=== PATIENT | female | born 1975 | race Two or more races ===

== ENCOUNTER → 2024-05-28 | Outpatient (CLI) | payer MEDICAID, SELFPAY ==
--- NOTE | 2024-05-28 | XR_ITS ---
Examination: Abdomen AP single view Technique: AP portable supine abdomen, single view Exam date and time: May 28, 2024 1323 hours INDICATIONS: History left approximately tube placement January 2024 FINDINGS: Left nephrostomy ureteral stent satisfactory position Multiple subcentimeter left renal calculi IMPRESSION: Left nephrostomy ureteral stent satisfactory position
== END | disposition home or self-care (01) ==
PROVIDERS: Referring Provider Surgery; Visit Provider Surgery
DX: N20.0 Calculus of kidney (principal)
CPT/HCPCS: 74018

== ENCOUNTER 2024-06-21 17:57 | Inpatient (IN) | payer MEDICAID, SELFPAY ==
[2024-06-20 11:05] VITALS: BMI 24.2
[2024-06-20 13:04] LABS: Collection Type, Urine Clean Catch
--- NOTE | 2024-06-20 13:23 | ESHP_ITS ---
RE: DARIA DAVIDSON : 1975 DATE OF ADMISSION: 06/21/2024 HISTORY OF PRESENT ILLNESS: The patient is a female who has a nephrostomy tube in place. She has a nephrostomy tube since 01/2024 from [facility]. She had stones in her left kidney and left ureter causing obstruction. That is why the nephrostomy tube was placed. She has a history of urinary calculi in the past. She is now scheduled to have extracorporeal shock wave lithotripsy for the left ureteral stones. Planned procedure, risks and complications have been discussed with the patient. The patient has understood them and agreed to proceed PAST SURGICAL HISTORY: The patient had tubal ligation, laparoscopy for endometriosis. PAST MEDICAL HISTORY: She has mild stress urinary incontinence. She does not have any history of diabetes mellitus. She does have a history of hypertension. SOCIAL HISTORY: She has three children. ALLERGIES: SHE IS ALLERGIC TO PENICILLIN. MEDICATIONS: She takes Zestril for her blood pressure. PHYSICAL EXAMINATION: HEENT: Normal. NECK: Supple. LUNGS: Clear. HEART: Sounds are normal. ABDOMEN: Reveals a left-sided percutaneous nephrostomy. Otherwise, abdomen is soft. IMPRESSION: 1. Left ureteral obstruction. 2. Left ureteral calculi. PLAN: ESWL for the left ureteral calculi. Planned procedure risks and complications have been discussed with the patient. The patient has understood them and agreed to proceed. DT: 12:39:54 TT: 13:22:00 Ref: [id number] - TID: [id number]
[2024-06-20 13:25] LABS: Bacteria,Urine 1+; Bilirubin,Urine Negative (Negative); Blood,Urine 2+ (Negative); Clarity,Urine Hazy (Clear/Hazy); Color,Urine Yellow (Lt Yel-Yel); Glucose, Urine Negative (Negative); Ketones,Urine Negative (Negative); Leukocyte Esterase,Urine Positive (Negative); Nitrite,Urine Negative (Negative); Protein,Urine 2+ (Neg - Trace); RBC,Urine 204 /hpf (0-3); Specific Gravity,Urine 1.014 (1.001-1.035); Squamous Epithelial Cell,Urine 3 /hpf (0-5); Urobilinogen,Urine Negative mg/dL (0.0-1.0); WBC,Urine 248 /hpf (0-5)
[2024-06-20 13:27] LABS: Basophils % (Auto) 0 % (0-2.5); Eosinophils # (Auto) 0.2 Thou/mm3 (0.0-0.5); Eosinophils % (Auto) 3 % (0-10); Hematocrit 41.7 % (36.0-46.0); Hemoglobin 13.7 g/dL (12.0-16.0); Immature Granulocytes % (Auto) 0 % (0-0); Immature Granulocytes Auto 0.03 Thou/mm3 (0.00-0.00); Lymphocytes # (Auto) 1.6 Thou/mm3 (1.0-4.8); Lymphocytes % (Auto) 20 % (10-50); Mean Corpuscular HGB Conc 32.9 g/dl (31.0-37.0); Mean Corpuscular Hemoglobin 28.8 pg (25.0-35.0); Mean Corpuscular Volume 88 fL (80-100); Monocytes # (Auto) 0.4 Thou/mm3 (0.0-0.8); Monocytes % (Auto) 6 % (0-12); Neutrophils # (Auto) 5.5 Thou/mm3 (1.8-7.7); Neutrophils % (Auto) 71 % (37-80); Nucleated Red Blood Cell % 0 /100 WBC (0); Platelet Count 354 Thou/mm3 (140-440); Red Blood Count 4.76 Miln/mm3 (4.00-5.20); White Blood Count 7.7 Thou/mm3 (3.6-11.0)
[2024-06-20 13:29] LABS: Anion Gap 8 (7-16); BUN/Creatinine Ratio 15 Ratio (12-20); Blood Urea Nitrogen 12 mg/dL (9-23); Calcium 9.9 mg/dL (8.3-10.6); Carbon Dioxide 26.8 mMol/L (20.0-31.0); Chloride 105 mMol/L (98-107); Creatinine (Component) 0.8 mg/dL (0.6-1.3); Estimated Creatinine Clearance 69.7 mL/min (>60); Glucose 109 mg/dL (74-106); Osmolality,Calculated 280 (275-295); Sodium 140 mMol/L (136-145); eGFR > 60 See Note
--- NOTE | 2024-06-20 14:21 | SUR.PREOP ---
K+ level 3.0, Dr Segovia notified, per Dr Segovia no need to repeat levels.
[2024-06-21] VITALS (24 sets, daily range): BP systolic 126–177; BP diastolic 70–110; PULSE 80–109; RESP 12–23; TEMP 36.4–37.2; O2SAT 95–100; BMI 23.6; BMI 25.9
--- NOTE | 2024-06-21 08:00 | XR_ITS ---
Examination: Abdomen AP single view Technique: AP portable supine abdomen, single view Exam date and time: June 21, 2024 10:40 AM INDICATIONS: History left kidney stones FINDINGS: Left nephrostomy ureteral catheter noted in satisfactory position Minute multiple left renal calculi No ureteral calculi noted IMPRESSION: Left nephrostomy ureteral catheter satisfactory position
--- NOTE | 2024-06-21 09:25 | EKG_ITS ---
[facility] Test Date: 2024-06-21 Pat Name: DARIA DAVIDSON Department: Room: - Gender: Female Bander Hand: [facility] : 1975 Requested By: Song Amaya Order Number: [id number] Reading MD: Song Amaya Measurements Intervals [place] Rate: 80 P: 43 ND: 147 QRS: 55 QRSD: 84 T: 55 QT: 372 QTc: 429 Interpretive Statements SINUS RHYTHM No previous ECG available for comparison /store/S0/[id number]/ecg/[id number].pdf
--- NOTE | 2024-06-21 11:54 | SUR.PHASEI ---
1130: Pt received in [place] via [facility]. Report from Jaguar BARNEY and Nick FAJARDO. Pt groggy. Easily aroused. Resp even, unlabored. BP elevated. Anesthesia aware. No recommendations at this time. Dressing to left flank dry, clean, intact. No complaints of pain.
[2024-06-21] MEDS: HYDROmorphone INJ 2 MG/ML VIAL 0.4 MG IVP (12:18)
--- NOTE | 2024-06-21 12:51 | SUR.PHASEI ---
1200: Pt resting with no complaints voiced. Resp even, unlabored. VS stable. Dressing to left flank remains dry, clean, intact.
--- NOTE | 2024-06-21 13:05 | SUR.PHASEII ---
1218: Pt awake with c/o to left flank. Rates pain level 8/10. Received new order for pain control. Resp even, unlabored. VS stable. Pain medication given at this chaya. 1230: Purwick external catheter placed. 1245: Purwick suctioning adequately with 200cc clear yellow urine in cannister. 1248: Pt states pain level down and very tolerable. Resting with no further complaints. 1308: Report to Valentina BARNEY.
[2024-06-21] MEDS: ONDANSETRON INJ 2 MG/ML INJ 2 ML 4 MG IV ×2 (13:13→21:01)
--- NOTE | 2024-06-21 13:45 | SUR.PHASEII ---
Report to Adamaris RN
--- NOTE | 2024-06-21 14:19 | ESOP_ITS ---
RE: DARIA DAVIDSON : 1975 DATE OF OPERATION: 06/21/2024 PREOPERATIVE DIAGNOSES: Left ureteral obstruction, status post left percutaneous nephrostomy with left ureteral stent, left lower pole renal calculi, and history of left ureteral obstruction. POSTOPERATIVE DIAGNOSES: Left ureteral obstruction, status post left percutaneous nephrostomy with left ureteral stent, left lower pole renal calculi, and history of left ureteral obstruction. PROCEDURE PERFORMED: ESWL for the left lower pole renal stones, percutaneous left nephrostogram, and removal of the left percutaneous nephrostomy tube with the left ureteral stent. ANESTHESIA: General by Sesar Romero CRNA INDICATION: The patient is a 49-year-old female. She had a left ureteral obstruction. She had multiple left renal calculi. She still has a few renal calculi in the lower pole of the left kidney. She has left ureteral stent with left percutaneous nephrostomy. She was now scheduled to have ESWL for the left lower pole renal calculi. Planned procedure, risks, and complications have been discussed with the patient. The patient was also told that we will do a left nephrostogram at the end of the procedure and remove the percutaneous nephrostomy attached with the left ureteral stent at the end of the procedure if there is no obstruction anymore. Planned procedure, risks, and complications have been discussed with the patient. The patient understood them and agreed to proceed. DESCRIPTION OF PROCEDURE: After the patient was brought to the operating table under adequate general anesthesia given by Mr. Nick CRNA, she was placed on Dornier Delta III lithotripsy machine. She had 2500 shots given at power level 7 to 8. She had ESWL done for the left lower pole renal calculi. At the end of the procedure, through the left nephrostomy tube, I did a nephrostogram. I injected radiopaque dye, which went through the nephrostomy tube into the left ureter into the bladder without any obstruction. There was mild left-sided hydronephrosis. I removed the left percutaneous nephrostomy tube and the left ureteral stent, which was attached to the nephrostomy tube came out. The whole stent came out. There was some encrustation at the end of the ureteral stent. I again did fluoroscopy and there was no obstruction to the left kidney or ureter. The dye was going down into the bladder without any obstruction. Dressing was applied to the nephrostomy site and the procedure was then terminated. The patient tolerated the entire procedure well and left the room in good condition. DT: 11:49:53 TT: 14:18:00 Ref: [id number] - TID: [id number]
[2024-06-21] MEDS: PROMETHAZINE INJ 25 MG in SODIUM CHLORIDE 0.9% 50 ML IV (14:36)
--- NOTE | 2024-06-21 14:40 | SUR.PHASEII ---
1345: Pt continues to have complaints of nausea. Pt retching.
--- NOTE | 2024-06-21 14:42 | SUR.PHASEII ---
1410: Received new order from anesthsia for Promethazine. Awaiting pharmacy to deliver medication. 1436: Promethazine received from [facility] and infusion started.
--- NOTE | 2024-06-21 14:55 | SUR.PHASEII ---
1455: Nausea subsided. Medication effective. Pt sleeping. BP down. All VS stable.
--- NOTE | 2024-06-21 15:21 | SUR.PHASEII ---
1519: Pt sleeping. VS stable. Suction container emptied of 800cc clear very pale pink urine.
--- NOTE | 2024-06-21 17:34 | SUR.PHASEII ---
1615: Pt has been resting with no complaints voiced. VS stable. 1715: Pt continues to rest with no complaints voiced. VS stable. Dressing to left flank remains dry, clean, intact.
--- NOTE | 2024-06-21 17:48 | SUR.PHASEII ---
1740: Report to 3rd floor. Pt transferred to room 363 in stable condition.
--- NOTE | 2024-06-21 20:59 | PC.NURSE ---
pt having N/V, Dr. Amaya was made aware. Zofran was ordered following MD orders.
[2024-06-21] MEDS: HYDROcodone/APAP 5/325 TABLET 1 TAB PO (21:02)
[2024-06-21] MEDS: CIPROFLOXACIN HCL 250 MG TABLET 500 MG PO (21:02)
[2024-06-22] VITALS (7 sets, daily range): BP systolic 100–153; BP diastolic 71–96; PULSE 98–117; RESP 16–20; TEMP 36.1–37.3; O2SAT 94–97
[2024-06-22] MEDS: HYDROcodone/APAP 5/325 TABLET 1 TAB PO (02:57)
--- NOTE | 2024-06-22 06:25 | PC.NURSE ---
CUT OFF SAWYER SHINGLE MILL called to pt's room. Pt in pain and complaining of SOB.
--- NOTE | 2024-06-22 06:29 | XR_ITS ---
Examination: Abdomen AP single view Technique: AP portable supine abdomen, single view Exam date and time: June 22, 2024 at 0845 hours INDICATIONS: Abdominal pain today. FINDINGS: Foreign body projects over the right abdomen, clinical correlation is advised Nonobstructive bowel gas pattern No free air Osseous structures are intact IMPRESSION: Foreign body projects over the right abdomen, clinical correlation advised
--- NOTE | 2024-06-22 06:29 | XR_ITS ---
Examination: AP chest single view Technique one AP portable upright chest single view Exam date 9: June 22, 2024 at 0653 hours INDICATIONS: Chest pain shortness of breath today. FINDINGS: Mild prominence left ventricle Subsegmental atelectasis left base No pneumonia or pulmonary edema IMPRESSION: Minor subsegmental atelectasis left base
[2024-06-22] MEDS: MORPHINE SULF INJ 10 MG/ML VIAL IVP ×3 (06:35→23:35)
--- NOTE | 2024-06-22 06:41 | XR_ITS ---
Examination: CT abdomen and pelvis without contrast. Coronal 3-D reconstructions. Sagittal 2-D reconstructions. Date and time of exam:June 22, 2024, 1134 hours INDICATIONS: History nephrostomy tube CTDI: vol (mGy): 8.49 DLP: (mGycm): 419 Technique: Axial images of the abdomen have been obtained, 3 mm slice thickness Intravenous contrast material has not been administered. Low dose protocols were performed. One or more of the following dose reduction techniques were used; automated exposure control, adjustment of the mA and/or KV according to patient size, use of iterative reconstruction technique. Findings: Atelectasis versus pneumonia left base clinical correlation advised 6 mm right lobe liver cyst No biliary tract dilatation Suspicious for gallbladder sludge No pancreatic mass Bilateral multiple renal calculi, the largest in the left kidney measuring up to 6 mm Mild to moderate left hydronephrosis secondary to 5 mm proximal left ureteral calculus No bowel obstruction Aorta normal size No pericecal inflammatory change Anteverted uterus Mild osteopenia IMPRESSION: Multiple bilateral renal calculi [id number] left hydronephrosis secondary to a 5 mm proximal left ureteral calculus
[2024-06-22 06:49] LABS: Lactate (Lactic Acid) 2.3 mMol/L (0.4-2.0)
--- NOTE | 2024-06-22 06:51 | PC.NURSE ---
UI DEVELOPER WITH ANGULAR JS called to pt's room. Pt complaining of pain and trouble breathing, new orders for pt, see BETH, Orders.
--- NOTE | 2024-06-22 06:53 | EVENTNT_ITS ---
Documentation for date of: 06/22/24 Event Note Event Note: Rapid response was called for the patient around 6:25 AM. Patient is a 49-year-old female under the care of urology who had a nephrostomy tube and ureteral stent removed yesterday. Rapid response was called due to acute debili tating pain ranked as 10 out of 10 and described as sharp and stabbing that worsened with inspiration, cough, and associated with some nausea like symptoms. Patient had received [place] at 3 AM and was doing fairly well but around 530 began to experience pain on her left side in the region of the nephrostomy site that was radiating to the anterior beneath the ribs. She was noted to be tachycardic and slightly hypertensive which rapidly improved to normotensive. Patient states that the pain is worse than when she had the ureteral stone. Initially plan to order KUB but later changed to CT of the abdomen along with a chest x-ray. No guarding, rebound tenderness, or rigidity noted on examination of bilateral equal breath sounds. Patient was reluctant to allow us to assess the left flank because of the tenderness. Gave the patient 1 mg of morphine which reduced her pain from 10 out of 10 to 7 out of 10 and she was able to converse more comfortably. She is did state that she was having a pokey sensation around her body after the morphine but has received morphine in the past and is not opioid na?ve. Recommend to reach out to urology following CT abdomen. Also give the patient Protonix 40 IV and Zofran for nausea. CBC, CMP, troponin ordered. Consider EKG and was appearing to be noncardiac and more in the left flank. Plan of care discussed with supervising attending Dr. Marin Izaguirre M.D. PGY-3
--- NOTE | 2024-06-22 07:00 | PC.NURSE ---
CHARM FILTER OPERATOR HELPER called for paitient due to uncontrolled pain on previous site of nephrostomy tube. cxr, kub, labs, meds, morphine 1mg IV push ordered.
[2024-06-22 07:08] LABS: Basophils # (Auto) 0.1 Thou/mm3 (0.0-0.2); Basophils % (Auto) 0 % (0-2.5); Eosinophils # (Auto) 6.9 Thou/mm3 (0.0-0.5); Eosinophils % (Auto) 20 % (0-10); Hematocrit 39.6 % (36.0-46.0); Hemoglobin 13.5 g/dL (12.0-16.0); Immature Granulocytes % (Auto) 3 % (0-0); Immature Granulocytes Auto 1.18 Thou/mm3 (0.00-0.00); Lymphocytes # (Auto) 0.4 Thou/mm3 (1.0-4.8); Lymphocytes % (Auto) 1 % (10-50); Mean Corpuscular HGB Conc 34.1 g/dl (31.0-37.0); Mean Corpuscular Volume 85 fL (80-100); Monocytes # (Auto) 1.1 Thou/mm3 (0.0-0.8); Monocytes % (Auto) 3 % (0-12); Neutrophils # (Auto) 24.8 Thou/mm3 (1.8-7.7); Neutrophils % (Auto) 72 % (37-80); Nucleated Red Blood Cell % 0 /100 WBC (0); Platelet Count 240 Thou/mm3 (140-440); Red Blood Count 4.66 Miln/mm3 (4.00-5.20); White Blood Count 34.5 Thou/mm3 (3.6-11.0)
--- NOTE | 2024-06-22 07:10 | ESCONSULT_ITS ---
HPI Data of Consult Consult date: 06/22/24 Requesting Physician: Song Amaya MD Attending Provider: Snog Amaya MD Primary Care Provider: RAPHAEL Bernabe Consult Narrative Reason for consult: Left upper quadrant pain radiating to the back History of present illness: This patient is a 49-year-old female with past medical history of endometriosis, stress urinary incontinence, hypertension was admitted for extracorporeal shockwave lithotripsy for the left ureteral stones. She had nephrostomy tube placed since January 2024 from [facility] due to stones in her left kidney and left ureter causing obstruction. Procedure was performed on 06/21/[address] Amaya. Extracorporeal shockwave lithotripsy was performed for left lower pole renal calculi and left nephrostogram was performed at the end of the procedure and percutaneous nephrostomy tube were removed. Patient tolerated the procedure well. PMH: As above PSH: Tubal ligation and laparoscopy for endometriosis SH: She has 3 children. Allergies: Allergic to penicillin Medications: Zestril for blood pressure Reason for consultation: Rapid response was called for the patient around 6:25 AM. Patient is under care of urology who had a nephrostomy tube and ureteral stent removed yesterday. Rapid response was called due to acute debilitating pain ranked as 10 out of 10 and described as sharp and stabbing that worsened with inspiration, cough, and associated with some nausea like symptoms. Patient had received [place] at 3 AM and was doing fairly well but around 530 began to experience pain on her left side in the region of the nephrostomy site that was radiating to the anterior beneath the ribs. She was noted to be tachycardic and slightly hypertensive which rapidly improved to normotensive. Patient states that the pain is worse than when she had the ureteral stone. Initially plan to order KUB but later changed to CT of the abdomen along with a chest x-ray. No guarding, rebound tenderness, or rigidity noted on examination of bilateral equal breath sounds. Patient was reluctant to allow us to assess the left flank because of the tenderness. Gave the patient 1 mg of morphine which reduced her pain from 10 out of 10 to 7 out of 10 and she was able to converse more comfortably. She is did state that she was having a pokey sensation around her body after the morphine but has received morphine in the past and is not opioid na?ve. Recommend to reach out to urology following CT abdomen. Also give the patient Protonix 40 IV and Zofran for nausea. CBC, CMP, troponin ordered. Consider EKG and was appearing to be noncardiac and more in the left flank. cc:: cc: Song Amaya MD Review of Systems Review of Systems Systems Reviewed: All systems reviewed, normal except as documented Past Medical History Past Medical History CARDIAC: Positive Hypertension GENITOURINARY: Positive Kidney Stones REPRODUCTIVE: Positive Endometriosis Exam Vital Signs Temp Pulse Resp BP Pulse Ox O2 Del Method O2 Flow Rate 98.7 F 104 H 20 153/81 H 97 Room Air 5 06/22/24 06:25 06/22/24 06:25 06/22/24 06:25 06/22/24 06:25 06/22/24 06:06/22/24 04:00 06/21/24 11:50 Narrative Exam GENERAL APPEARANCE: AxOx4, generally well-appearing female in pain.sat well on RA HEENT: NC, AT. Dry mucus membrane. EOMI, clear conjunctiva, oropharynx clear. NECK: Supple without lymphadenopathy. No stiffness or restricted ROM. HEART: sinus tacy with regular rhythm, normal S1/S2, no m/r/g LUNGS: CTAB, moving air well. No crackles or wheezes are heard. ABDOMEN: Soft, Tenderness elicited on left upper and lower quadrant, nondistended with good bowel sounds heard. BACK: left flank pain EXTREMITIES: Without cyanosis, clubbing or edema. NEUROLOGICAL: Grossly nonfocal. Alert and oriented, moving all 4 extremities. CN not formally tested but appear grossly intact. Observed to ambulate with normal gait. Skin: Warm and dry without any rash. Psych: Anxious with pain Results Labs 06/22/24 06:39 06/22/24 06:39 Quality Measures Quality Measures VTE prophylaxis Medications Home Medications and Allergies Home Medications ?Medication ?Instructions ?Recorded ?Confirmed ?Type L.acidophilus-L.bulgar-B.bifid-S.thermoph 1 tab PO JAVY LY 06/20/24 06/20/24 History 1 billion cell-250 mg tablet (Amy-Bid) hydrocodone 5 mg-acetaminophen 325 1 tab PO Q6H PRN pa in 06/20/24 06/20/24 History mg tablet ondansetron 4 mg disintegrating 4 mg PO Q8H 06/20/24 0 06/20/24 History tablet tamsulosin 0.4 mg capsule 0.4 mg PO DAILY 06/20/24 History Allergies Allergy/AdvReac Type Severity Reaction Status Date / Time Penicillins Allergy Anaphylaxis Verified 06/21/24 11:41 Visit Medications Hydrocodone Bitart/Acetaminophen (Hydrocodone/Apap 5/325 Tablet) 1 tab PO Q6HR PRN PRN Reason: PAIN Stop: 06/26/24 13:19 Last Admin: 06/22/24 02:57 Dose: 1 tab Ciprofloxacin (Ciprofloxacin Hcl 250 Mg Tablet) 500 mg PO BID EVELINE Stop: 06/28/24 20:59 Last Admin: 06/21/24 21:02 Dose: 500 mg Ondansetron HCl (Ondansetron Inj 2 Mg/Ml Inj 2 Ml) 4 mg IV Q6HR PRN; Protocol PRN Reason: NAUSEA OR VOMITING Stop: 07/21/24 20:52 Last Admin: 06/21/24 21:01 Dose: 4 mg Discontinued Medications Hydromorphone HCl (Hydromorphone Inj 2 Mg/Ml Vial) 0.4 mg IVP Q15M PRN PRN Reason: PAIN Stop: 06/21/24 14:04 Last Admin: 06/21/24 12:18 Dose: 0.4 mg Lactated Ringer's (Lactated Ringers) 1,000 mls @ 20 mls/hr IV .Q24H ONE Stop: 06/22/24 05:59 Promethazine HCl 25 mg/ Sodium (Chloride) 51 mls @ 2.5 mls/min IV Q6HR PRN PRN Reason: NAUSEA OR VOMITING Stop: 06/21/24 16:10 Last Admin: 06/21/24 14:36 Dose: 2.5 mls/min Morphine Sulfate (Morphine Sulf Inj 10 Mg/Ml Vial) 1 mg IVP X1 ONE Stop: 06/22/24 06:31 Last Admin: 06/22/24 06:35 Dose: 1 mg Ondansetron HCl (Ondansetron Inj 2 Mg/Ml Inj 2 Ml) 4 mg IV X1 ONE; Protocol Stop: 06/21/24 12:12 Last Admin: 06/21/24 13:13 Dose: 4 mg Ondansetron HCl (Ondansetron Inj 2 Mg/Ml Inj 2 Ml) 4 mg IV X1 ONE; Protocol Stop: 06/22/24 06:37 Pantoprazole Sodium (Pantoprazole Inj 40 Mg Vial) 40 mg IV X1 ONE Stop: 06/22/24 06:37 Assessment & Plan Plan This patient is a 49-year-old female with past medical history of endometriosis, stress urinary incontinence, hypertension was admitted for extracorporeal shockwave lithotripsy for the left ureteral stones.#Extracorporeal shockwave lithotripsy was performed for left lower pole renal calculi and left nephrostogram was performed at the end of the procedure and percutaneous nephrostomy tube were removed on 06/21/[address] Amaya. #Left flank and upper quadrant Pain #Post ECSW lithotripsy and Removal of Left nephrotosmy tube due to ureteral stones #UTI -Rapid response was called for the patient around 6:25 AM. Patient is under care of urology who had a nephrostomy tube and ureteral stent removed yesterday. Rapid response was called due to acute debilitating pain ranked as 10 out of 10 and described as sharp and stabbing that worsened with inspiration, cough, and associated with some nausea like symptoms.pain on her left side in the region of the nephrostomy site that was radiating to the anterior beneath the ribs. She was noted to be tachycardic and slightly hypertensive which rapidly improved to normotensive. She states that the pain is worse than when she had the ureteral stone.pain on her left side in the region of the nephrostomy site that was radiating to the anterior beneath the ribs. She was noted to be tachycardic and slightly hypertensive which rapidly improved to normotensive. Patient states that the pain is worse than when she had the ureteral stone. -She was noted to be tachycardic and slightly hypertensive which rapidly improved to normotensive. -Liver enzymes unremarkable. Troponin I was negative. -Ucx grew Klebsiella resistant to ciprofloxacin Plan: -Follow up with KUB, CT of the abdomen/pelvis wo cont along with a chest x-ray. - [place] and Morphine PRN for pain -Zofran and Protonix given x 1 -Zofran for nausea -Follow up with CBC,CMP,Lactic acid,Trop I -Consider EKG and was appearing to be noncardiac and more in the left flank. - Switch to Bactrim 1 tablet twice daily due to allergic to penicillins and resistant to ciprofloxacin seen on culture sensitivity growing Klebsiella #Leukocytosis likely reactive due to proceedure vs ?infection -Morning labs reveal leukocytosis with white count 34.5. Hemoglobin stable at 13.5. Platelet count unremarkable. - Urine culture grew Klebsiella resistant to ciprofloxacin Plan: -Switch to Bactrim 1 tablet twice daily given allergic to penicillin and resistant to ciprofloxacin -Cont IV fluids and as of LR given #Hypokalemia -Potassium was 3.5. Plan: -P.o. KCl 40M EQ x 1 - Follow-up with magnesium levels and replete as necessary #Mild ALFRED likely prerenal due to dehydration versus postrenal due to renal stone -BUN 15 and creatinine 1.2 with GFR 55. Blood glucose 121. Plan: - Continue IV fluids - Follow-up with CT abdomen pelvis without contrast to rule out further stones in the ureter - Renally dose medications #Lactic acidosis likely type A related to hypoperfusion due to developing ?infection -lactic acid elevated 2.3. Plan: -Continue antibiotics and given IV fluids LR 1 L x 1 - Switched antibiotics to Bactrim sensitive to urine culture sensitivity #Hx of Hypertension #Hx of Endometriosis - Outpatient follow-up - Monitor vitals Thank you very much for allowing hospitalist team to be part of patient care. -- Plan of care discussed with attending physician, Dr.Bishwakarma Dr. Albert MD, PGY 2 Attending Provider Attestation/Addendum I attest that I was physically present for the evaluation, physical examination, lab and imaging review of the patient with the residents. I discussed the case with the residents and agree with the findings and plans of care as documented above. Patient is a 49 years old female with past medical history of endometriosis, urinary incontinence, hypertension who was admitted for extracorporeal shockwave lithotripsy for left ureteral stone by urology. Left nephrostomy tube was also removed at the same time. In the morning, a rapid response was called due to severe pain, 10/10 associated with mild nausea. Patient had received [place] but despite that she continued to have pain. At bedside, patient was tachycardic, mildly hypertensive and appeared to be in distress from pain. Ordered IV morphine and CT abdomen/pelvis. Also ordered Protonix and Zofran. We will obtain morning labs including CBC, CMP EKG and troponin. Internal medicine consult was requested by urology. Patient was found to be resistant to ciprofloxacin on culture results, we will switch her antibiotic to Bactrim. Potassium level was 3.5, repleted with 40 mill equivalent. We will also obtain magnesium level. We will continue with IV hydration, concern for mild ALFRED with creatinine of 1.2. Added morphine 1 mg every 4 hours as needed in addition to the [place] for pain control. We will continue to monitor her pain closely and adjust the regimen accordingly. Nikita Funes MD
[2024-06-22] MEDS: ONDANSETRON INJ 2 MG/ML INJ 2 ML 4 MG IV (07:23)
[2024-06-22] MEDS: PANTOPRAZOLE INJ 40 MG VIAL IV (07:24)
[2024-06-22 07:27] LABS: HCG,Qualitative Serum Negative
[2024-06-22 07:32] LABS: Alanine Aminotransferase 15 U/L (10-49); Albumin, Serum 4.3 gm/dL (3.5-5.0); Albumin/Globulin Ratio 1.7 (1.2-2.2); Alkaline Phosphatase 64 U/L (46-116); Anion Gap 11 (7-16); Aspartate Amino Transferase 25 U/L (0-34); BUN/Creatinine Ratio 13 Ratio (12-20); Bilirubin,Total 0.7 mg/dL (0.3-1.2); Blood Urea Nitrogen 15 mg/dL (9-23); Calcium 9.5 mg/dL (8.3-10.6); Calcium (Corrected) 9.5 mg/dL (8.5-10.1); Carbon Dioxide 24.2 mMol/L (20.0-31.0); Chloride 101 mMol/L (98-107); Creatinine (Component) 1.2 mg/dL (0.6-1.3); Estimated Creatinine Clearance 47.9 mL/min (>60); Globulin 2.6 gm/dL (2.3-3.5); Glucose 121 mg/dL (74-106); Osmolality,Calculated 273 (275-295); Potassium 3.5 mMol/L (3.4-5.1); Sodium 136 mMol/L (136-145); Total Protein 6.9 gm/dL (5.7-8.2); Troponin I 0.022 ng/mL (0.0-0.045); eGFR 55 See Note
[2024-06-22] MEDS: TRIMETHOPRIM/SULFA 160/800 DS TABLET 1 TAB PO ×2 (08:55→21:22)
[2024-06-22] MEDS: POTASSIUM CHLORIDE 10% 20 MEQ/15 ML UDC 40 MEQ PO (08:55)
[2024-06-22] MEDS: DEXTROSE 5%-LACTATED RINGERS 1,000 ML 100 ML IV ×2 (08:56→21:33)
[2024-06-22] MEDS: RINGERS LACTATED 1000 ML 1,000 ML 999 ML IV (08:56)
[2024-06-22 09:31] LABS: Magnesium 1.3 mg/dL (1.6-2.6)
[2024-06-22 09:43] LABS: Reflex Lactate? Y
[2024-06-22 10:47] LABS: Lactic Acid, 3 HR 3.5 mMol/L (0.4-2.0)
--- NOTE | 2024-06-22 16:15 | ESPR_ITS ---
<Statement entered by Mark Pope MD - 06/23/24 10:56> I discussed with and supervised the journalism internship physician involved in the care of this patient. Patient assessment and plan was discussed with entire medicine team, including my attending. I agree with the assessment and plan as documented by journalism internship doctor. Patient care was discussed with my attending physician Dr. Jennifer Pope, PGY-2 Documentation for date of: 06/22/24 Subjective Subjective Interval history: Patient examined at bedside. Continues to experience severe pain 10/06. States that it has improved since a rapid response with IV morphine. Pain is worse with talking and any movement. Extremely tender to touch. Vital stable, WBC 34, creatinine 1.2, lactic acid 2.3 from labs this morning. CT abdomen pelvis showed multiple bilateral renal calculi and moderate left- sided hydronephrosis. No concern for obstruction requiring invasive management. Continue with fluids, IV antibiotics, continue pain management, physical therapy. Blood cultures pending. Exam Vital Signs Temp Pulse Resp BP Pulse Ox O2 Del Method O2 Flow Rate 98.1 F 98 16 100/71 94 L Room Air 5 06/22/24 12:00 06/22/24 12:00 06/22/24 12:00 06/22/24 12:00 06/22/24 12:00 06/22/24 12:00 06/21/24 11:50 Narrative Exam GENERAL APPEARANCE: AxOx4, generally well-appearing female in pain.sat well on RA HEENT: NC, AT. Dry mucus membrane. EOMI, clear conjunctiva, oropharynx clear. NECK: Supple without lymphadenopathy. No stiffness or restricted ROM. HEART: sinus tacy with regular rhythm, normal S1/S2, no m/r/g LUNGS: CTAB, moving air well. No crackles or wheezes are heard. ABDOMEN: Soft, Tenderness elicited on left upper and lower quadrant, nondistended with good bowel sounds heard. BACK: left flank pain EXTREMITIES: Without cyanosis, clubbing or edema. NEUROLOGICAL: Grossly nonfocal. Alert and oriented, moving all 4 extremities. CN not formally tested but appear grossly intact. Observed to ambulate with normal gait. Skin: Warm and dry without any rash. Psych: Anxious with pain Objective Labs 06/23/24 04:43 06/23/24 04:43 Labs: Laboratory Results - last 24 hr 06/22/24 06/22/24 06/22/24 06:39 08:20 10:15 WBC 34.5 H D RBC 4.66 Hgb 13.5 Hct 39.6 MCV 85 MCH 29.0 MCHC 34.1 RDW Std Deviation 40.0 Plt Count 240 D Neut % (Auto) 72 Lymph % (Auto) 1 L [place] % (Auto) 3 Eos % (Auto) 20 H Baso % (Auto) 0 Neut # (Auto) 24.8 H Lymph # (Auto) 0.4 L [place] # (Auto) 1.1 H Eos # (Auto) 6.9 H Baso # (Auto) 0.1 Immature Gran # (Auto) 1.18 H Absolute Nucleated RBC 0.00 Immature Gran % 3 H Nucleated RBC % 0 Sodium 136 Potassium 3.5 D Chloride 101 Carbon Dioxide 24.2 Anion Gap 11 BUN 15 Creatinine 1.2 Estim Creat Clear Calc 47.9 L eGFR 55 L BUN/Creatinine Ratio 13 Glucose 121 H Calculated Osmolality 273 L Lactic Acid 2.3 H 3.5 H Calcium 9.5 Corrected Calcium 9.5 Magnesium 1.3 L Total Bilirubin 0.7 AST 25 ALT 15 Alkaline Phosphatase 64 Troponin I 0.022 Total Protein 6.9 Albumin 4.3 Globulin 2.6 Albumin/Globulin Ratio 1.7 HCG, Qual Negative Quality Measures Quality Measures VTE prophylaxis Assessment & Plan Assessment Current Active Medications: Generic Name Dose Route Start Last Admin Trade Name Freq PRN Reason Stop Dose Admin Hydrocodone Bitart/Acetaminophen 1 tab 06/22/24 13:03 Hydrocodone/Apap 5/325 Tablet PO 06/26/24 13:19 Q6HR PRN PAIN Dextrose/Lactated Ringer's 1,000 mls @ 100 mls/hr 06/22/24 07:30 06/22/24 08:56 D5-Lr IV 07/22/24 07:29 100 mls/hr .Q10H EVELINE Administration Ceftazidime 1 gm/ Sodium 50 mls @ 100 mls/hr 06/22/24 15:45 Chloride IV 06/29/24 15:44 Q8HR EVELINE Ketorolac Tromethamine 30 mg 06/22/24 12:54 Ketorolac Inj 30 Mg/Ml Vial IVP 06/27/24 12:53 Q6HR PRN Pain 4-10 Morphine Sulfate 1 mg 06/22/24 13:03 Morphine Sulf Inj 10 Mg/Ml Vial IVP 06/27/24 07:58 Q4HR PRN Severe Pain 7-10 Ondansetron HCl 4 mg 06/21/24 20:53 06/21/24 21:01 Ondansetron Inj 2 Mg/Ml Inj 2 Ml IV 07/21/24 20:52 4 mg Q6HR PRN Administration NAUSEA OR VOMITING Protocol Trimethoprim/Sulfamethoxazole 1 tab 06/22/24 09:00 06/22/24 08:55 Trimethoprim/Sulfa 160/800 Ds Tablet PO 06/29/24 08:59 1 tab BID EVELINE Administration Plan This patient is a 49-year-old female with past medical history of endometriosis, stress urinary incontinence, hypertension was admitted for extracorporeal shockwave lithotripsy for the left ureteral stones.#Extracorporeal shockwave lithotripsy was performed for left lower pole renal calculi and left nephrostogram was performed at the end of the procedure and percutaneous nephrostomy tube were removed on 06/21/[address] Amaya. #Left flank and upper quadrant Pain #Post ECSW lithotripsy and Removal of Left nephrotosmy tube due to ureteral stones #UTI #Leukocytosis #Lactic acidosis -Rapid response was called for the patient around 6:25 AM. Patient is under care of urology who had a nephrostomy tube and ureteral stent removed yesterday. Rapid response was called due to acute debilitating pain ranked as 10 out of 10 and described as sharp and stabbing that worsened with inspiration, cough, and associated with some nausea like symptoms.pain on her left side in the region of the nephrostomy site that was radiating to the anterior beneath the ribs. She was noted to be tachycardic and slightly hypertensive which rapidly improved to normotensive. She states that the pain is worse than when she had the ureteral stone.pain on her left side in the region of the nephrostomy site that was radiating to the anterior beneath the ribs. She was noted to be tachycardic and slightly hypertensive which rapidly improved to normotensive. Patient states that the pain is worse than when she had the ureteral stone. -She was noted to be tachycardic and slightly hypertensive which rapidly improved to normotensive. -Liver enzymes unremarkable. Troponin I was negative. -Ucx grew Klebsiella resistant to ciprofloxacin CT abdomen pelvis showed multiple bilateral renal calculi and moderate left- sided hydronephrosis. No concern for obstruction requiring invasive management. Plan: - [place], toradol, and Morphine PRN for pain -Zofran for nausea -Bactrim 1tab BID -ceftazidine 1g TID -blood cultures pending #Electrolyte abnormalities Potassium was 3.5. -replete as necessary #Mild ALFRED likely prerenal due to dehydration versus postrenal due to renal stone BUN 15 and creatinine 1.2 with GFR 55. Blood glucose 121. - Continue IV fluids - Renally dose medications -avoid nephrotoxic agents #Hx of Hypertension #Hx of Endometriosis - Outpatient follow-up - Monitor vitals Thank you very much for allowing hospitalist team to be part of patient care. The patient's management plan was discussed with my attending physician Dr. Rodriguez. Sushma Corrales, PGY-1 Attending Provider Attestation/Addendum I discussed with and supervised the resident physician who took care of this patient. I agree with the assessment and plan as above. Patient was admitted for severe left flank pain. She had ESWL and removal of left nephrostomy tube. Patient is afebrile. She has high white count. She is on IV pain medication. She has urine output. Creatinine is 1.2.
[2024-06-22] MEDS: KETOROLAC INJ 30 MG/ML VIAL IVP (17:06)
[2024-06-22] MEDS: RINGERS LACTATED 1000 ML 500 ML 30 ML IV (21:31)
[2024-06-23] VITALS: BP 124/80; PULSE 91; RESP 18; TEMP 36.1; O2SAT 96
[2024-06-23 04:00] VITALS: BP 142/83; PULSE 89; RESP 18; TEMP 37; O2SAT 93
[2024-06-23 06:09] LABS: Basophils # (Auto) 0.1 Thou/mm3 (0.0-0.2); Basophils % (Auto) 0 % (0-2.5); Eosinophils # (Auto) 0.1 Thou/mm3 (0.0-0.5); Eosinophils % (Auto) 1 % (0-10); Hematocrit 32.1 % (36.0-46.0); Hemoglobin 10.8 g/dL (12.0-16.0); Immature Granulocytes % (Auto) 1 % (0-0); Immature Granulocytes Auto 0.16 Thou/mm3 (0.00-0.00); Lymphocytes # (Auto) 1.2 Thou/mm3 (1.0-4.8); Lymphocytes % (Auto) 6 % (10-50); Mean Corpuscular HGB Conc 33.6 g/dl (31.0-37.0); Mean Corpuscular Hemoglobin 29.5 pg (25.0-35.0); Mean Corpuscular Volume 88 fL (80-100); Monocytes % (Auto) 5 % (0-12); Neutrophils # (Auto) 17.6 Thou/mm3 (1.8-7.7); Neutrophils % (Auto) 88 % (37-80); Nucleated Red Blood Cell % 0 /100 WBC (0); Platelet Count 216 Thou/mm3 (140-440); RDW Standard Deviation 42.5 fL (36.4-46.3); Red Blood Count 3.66 Miln/mm3 (4.00-5.20); White Blood Count 20.1 Thou/mm3 (3.6-11.0)
[2024-06-23 06:29] LABS: Alanine Aminotransferase 11 U/L (10-49); Albumin, Serum 3.4 gm/dL (3.5-5.0); Albumin/Globulin Ratio 1.4 (1.2-2.2); Alkaline Phosphatase 69 U/L (46-116); Anion Gap 8 (7-16); Aspartate Amino Transferase 19 U/L (0-34); BUN/Creatinine Ratio 10 Ratio (12-20); Bilirubin,Total 0.4 mg/dL (0.3-1.2); Blood Urea Nitrogen 10 mg/dL (9-23); Calcium 8.8 mg/dL (8.3-10.6); Calcium (Corrected) 9.3 mg/dL (8.5-10.1); Carbon Dioxide 26.8 mMol/L (20.0-31.0); Chloride 107 mMol/L (98-107); Estimated Creatinine Clearance 57.5 mL/min (>60); Globulin 2.5 gm/dL (2.3-3.5); Glucose 99 mg/dL (74-106); Magnesium 1.6 mg/dL (1.6-2.6); Osmolality,Calculated 282 (275-295); Phosphorous 2.3 mg/dL (2.4-5.1); Potassium 3.1 mMol/L (3.4-5.1); Sodium 142 mMol/L (136-145); Total Protein 5.9 gm/dL (5.7-8.2); eGFR > 60 See Note
[2024-06-23] MEDS: KETOROLAC INJ 30 MG/ML VIAL IVP ×2 (07:40→16:30)
[2024-06-23 08:00] VITALS: BP 127/79; PULSE 88; RESP 16; TEMP 36.2; O2SAT 96
[2024-06-23] MEDS: POTASSIUM CHLORIDE 20 mEq TABCR 40 MEQ PO ×2 (08:33→09:51)
[2024-06-23] MEDS: TRIMETHOPRIM/SULFA 160/800 DS TABLET 1 TAB PO ×2 (08:34→21:31)
[2024-06-23 11:53] VITALS: BP 144/87; PULSE 82; RESP 18; TEMP 36.3; O2SAT 99
--- NOTE | 2024-06-23 11:57 | ESPR_ITS ---
Documentation for date of: 06/23/24 Subjective Subjective Interval history: Patient examined at bedside. No events overnight. Patient still has pain 09/05 but much improved from yesterday, decreased appetite but trying to eat. Vitals are stable, leukocytosis improving to 20, hypokalemia 3.1--repleted 40+40 mEq. ALFRED resolving with creatinine 1.0 today. Repeat urine culture, blood cultures are pending. Patient encouraged to use bedside spirometry to work with therapy. Continue with current pain management, antibiotics, and fluids for UTI and 5mm left kidney stone. Exam Vital Signs Temp Pulse Resp BP Pulse Ox O2 Del Method O2 Flow Rate 97.4 F 82 18 144/87 H 99 Room Air 5 06/23/24 11:53 06/23/24 11:53 06/23/24 11:53 06/23/24 11:53 06/23/24 11:53 06/23/24 11:53 06/21/24 11:50 Narrative Exam GENERAL APPEARANCE: AxOx4, generally well-appearing female in pain.sat well on RA HEENT: NC, AT. Dry mucus membrane. EOMI, clear conjunctiva, oropharynx clear. NECK: Supple without lymphadenopathy. No stiffness or restricted ROM. HEART: sinus tacy with regular rhythm, normal S1/S2, no m/r/g LUNGS: CTAB, moving air well. No crackles or wheezes are heard. ABDOMEN/BACK: Soft, mild CVA tenderness, tube insertion site was examined. No signs of infection, no active draining. EXTREMITIES: Without cyanosis, clubbing or edema. NEUROLOGICAL: Grossly nonfocal. Alert and oriented, moving all 4 extremities. CN not formally tested but appear grossly intact. Skin: Warm and dry without any rash. Psych: Anxious with pain Objective Labs 06/23/24 04:43 06/23/24 04:43 Labs: Laboratory Results - last 24 hr 06/23/24 04:43 WBC 20.1 H D RBC 3.66 L Hgb 10.8 L D Hct 32.1 L MCV 88 MCH 29.5 MCHC 33.6 RDW Std Deviation 42.5 Plt Count 216 Neut % (Auto) 88 H Lymph % (Auto) 6 L [place] % (Auto) 5 Eos % (Auto) 1 Baso % (Auto) 0 Neut # (Auto) 17.6 H Lymph # (Auto) 1.2 [place] # (Auto) 1.0 H Eos # (Auto) 0.1 Baso # (Auto) 0.1 Immature Gran # (Auto) 0.16 H Absolute Nucleated RBC 0.00 Immature Gran % 1 H Nucleated RBC % 0 Sodium 142 Potassium 3.1 L Chloride 107 Carbon Dioxide 26.8 Anion Gap 8 BUN 10 Creatinine 1.0 Estim Creat Clear Calc 57.5 L eGFR > 60 BUN/Creatinine Ratio 10 L Glucose 99 Calculated Osmolality 282 Calcium 8.8 Corrected Calcium 9.3 Phosphorus 2.3 L Magnesium 1.6 Total Bilirubin 0.4 AST 19 ALT 11 Alkaline Phosphatase 69 Total Protein 5.9 Albumin 3.4 L D Globulin 2.5 Albumin/Globulin Ratio 1.4 Quality Measures Quality Measures VTE prophylaxis Assessment & Plan Assessment Current Active Medications: Generic Name Dose Route Start Last Admin Trade Name Freq PRN Reason Stop Dose Admin Hydrocodone Bitart/Acetaminophen 1 tab 06/22/24 13:03 Hydrocodone/Apap 5/325 Tablet PO 06/26/24 13:19 Q6HR PRN PAIN Dextrose/Lactated Ringer's 1,000 mls @ 100 mls/hr 06/22/24 07:30 06/22/24 21:33 D5-Lr IV 07/22/24 07:29 100 mls/hr .Q10H EVELINE Administration Lactated Ringer's 500 mls @ 30 mls/hr 06/22/24 21:30 06/22/24 21:31 Lactated Ringers IV 06/23/24 14:09 30 mls/hr .[id number] ONE Administration Ceftazidime 1 gm/ Sodium 50 mls @ 100 mls/hr 06/23/24 14:00 Chloride IV 06/30/24 13:59 Q8HR EVELINE Ketorolac Tromethamine 30 mg 06/22/24 12:54 06/23/24 07:40 Ketorolac Inj 30 Mg/Ml Vial IVP 06/27/24 12:53 30 mg Q6HR PRN Administration Pain 4-10 Morphine Sulfate 1 mg 06/22/24 13:03 06/22/24 23:35 Morphine Sulf Inj 10 Mg/Ml Vial IVP 06/27/24 07:58 1 mg Q4HR PRN Administration Severe Pain 7-10 Ondansetron HCl 4 mg 06/21/24 20:53 06/21/24 21:01 Ondansetron Inj 2 Mg/Ml Inj 2 Ml IV 07/21/24 20:52 4 mg Q6HR PRN Administration NAUSEA OR VOMITING Protocol Trimethoprim/Sulfamethoxazole 1 tab 06/22/24 09:00 06/23/24 08:34 Trimethoprim/Sulfa 160/800 Ds Tablet PO 06/29/24 08:59 1 tab BID EVELINE Administration Plan This patient is a 49-year-old female with past medical history of endometriosis, stress urinary incontinence, hypertension was admitted for extracorporeal shockwave lithotripsy for the left ureteral stones.#Extracorporeal shockwave lithotripsy was performed for left lower pole renal calculi and left nephrostogram was performed at the end of the procedure and percutaneous nephrostomy tube were removed on 06/21/[address] Amaya. #Left flank and upper quadrant Pain #Post ECSW lithotripsy and Removal of Left nephrotosmy tube due to ureteral stones #Klebsiella UTI #Leukocytosis #Lactic acidosis -Rapid response was called for the patient around 6:25 AM. Patient is under care of urology who had a nephrostomy tube and ureteral stent removed yesterday. Rapid response was called due to acute debilitating pain ranked as 10 out of 10 and described as sharp and stabbing that worsened with inspiration, cough, and associated with some nausea like symptoms.pain on her left side in the region of the nephrostomy site that was radiating to the anterior beneath the ribs. She was noted to be tachycardic and slightly hypertensive which rapidly improved to normotensive. She states that the pain is worse than when she had the ureteral stone.pain on her left side in the region of the nephrostomy site that was radiating to the anterior beneath the ribs. She was noted to be tachycardic and slightly hypertensive which rapidly improved to normotensive. Patient states that the pain is worse than when she had the ureteral stone. Ucx grew Klebsiella resistant to ciprofloxacin CT abdomen pelvis showed multiple bilateral renal calculi and moderate left- sided hydronephrosis. No concern for obstruction requiring invasive management. Plan: - [place], toradol, and Morphine PRN for pain -Zofran for nausea -Bactrim 1tab BID (06/23-) -ceftazidine 1g TID (06/23-) -blood cultures pending #Electrolyte abnormalities Potassium was 3.5. -replete as necessary #Mild ALFRED likely prerenal-resolved Due to dehydration versus postrenal due to renal stone. BUN 15 and creatinine 1.2 with GFR 55. Blood glucose 121. - Continue IV fluids - Renally dose medications -avoid nephrotoxic agents #Hx of Hypertension #Hx of Endometriosis - Outpatient follow-up - Monitor vitals Thank you very much for allowing hospitalist team to be part of patient care. The patient's management plan was discussed with my attending physician Dr. Rodriguez. Sushma Corrales, PGY-1 Attending Provider Attestation/Addendum 49-year-old female with kidney stones status post ESWL in removal of left nephrostomy tube. Patient has severe flank pain. She she has Klebsiella in the urine. She is currently on ceftazidime and Bactrim. Patient has no fever. She still has pain in the left flank area. She has urine output. She has no hematuria. Discussed with housestaff.
--- NOTE | 2024-06-23 12:25 | PC.SS ---
SS met with patient at bedside to complete initial assessment. Patient confirmed demographic information. Patient stated she lives with her daughter Eusebia Chance. Patient stated her daughter Eusebia Chance [phone] is her alternate surrogate medical decision maker. Patient stated her daughter assists her with ADL completion. Patient stated she is independent with ambulation. Pharmacy: [facility]. PCP: Rozina Diaz, [facility]. Next of kin: Daughter Eusebia Chance [phone] Discharge plan: Home, family to provide transportation
[2024-06-23] MEDS: SODIUM CHLORIDE 0.9% IV ×2 (14:20→21:32)
[2024-06-23] MEDS: CEFTAZIDIME IV ×2 (14:20→21:32)
[2024-06-23 16:00] VITALS: BP 141/96; PULSE 84; RESP 15; TEMP 36.6; O2SAT 98
[2024-06-23] MEDS: MORPHINE SULF INJ 10 MG/ML VIAL IVP (19:48)
[2024-06-23 20:00] VITALS: BP 149/89; PULSE 87; RESP 16; TEMP 36.4; O2SAT 98
[2024-06-24] VITALS: BP 155/103; PULSE 83; RESP 17; TEMP 36.2; O2SAT 98
[2024-06-24] MEDS: KETOROLAC INJ 30 MG/ML VIAL IVP (00:11)
[2024-06-24 04:00] VITALS: BP 139/66; PULSE 70; RESP 18; TEMP 36.5; O2SAT 97
[2024-06-24] MEDS: SODIUM CHLORIDE 0.9% IV (05:35)
[2024-06-24] MEDS: CEFTAZIDIME IV (05:35)
[2024-06-24 05:36] LABS: Basophils % (Auto) 0 % (0-2.5); Eosinophils # (Auto) 0.3 Thou/mm3 (0.0-0.5); Eosinophils % (Auto) 2 % (0-10); Hematocrit 33.8 % (36.0-46.0); Hemoglobin 11.5 g/dL (12.0-16.0); Immature Granulocytes % (Auto) 0 % (0-0); Immature Granulocytes Auto 0.05 Thou/mm3 (0.00-0.00); Lymphocytes # (Auto) 1.9 Thou/mm3 (1.0-4.8); Lymphocytes % (Auto) 16 % (10-50); Mean Corpuscular Hemoglobin 29.2 pg (25.0-35.0); Mean Corpuscular Volume 86 fL (80-100); Monocytes # (Auto) 0.7 Thou/mm3 (0.0-0.8); Monocytes % (Auto) 6 % (0-12); Neutrophils # (Auto) 8.9 Thou/mm3 (1.8-7.7); Neutrophils % (Auto) 75 % (37-80); Nucleated Red Blood Cell % 0 /100 WBC (0); Platelet Count 179 Thou/mm3 (140-440); RDW Standard Deviation 40.4 fL (36.4-46.3); Red Blood Count 3.94 Miln/mm3 (4.00-5.20); White Blood Count 11.8 Thou/mm3 (3.6-11.0)
[2024-06-24 06:05] LABS: Alanine Aminotransferase 13 U/L (10-49); Albumin, Serum 3.8 gm/dL (3.5-5.0); Albumin/Globulin Ratio 1.5 (1.2-2.2); Alkaline Phosphatase 91 U/L (46-116); Anion Gap 6 (7-16); Aspartate Amino Transferase 18 U/L (0-34); BUN/Creatinine Ratio 11 Ratio (12-20); Bilirubin,Total 0.4 mg/dL (0.3-1.2); Blood Urea Nitrogen 9 mg/dL (9-23); Calcium 9.1 mg/dL (8.3-10.6); Calcium (Corrected) 9.3 mg/dL (8.5-10.1); Carbon Dioxide 25.8 mMol/L (20.0-31.0); Chloride 108 mMol/L (98-107); Creatinine (Component) 0.8 mg/dL (0.6-1.3); Estimated Creatinine Clearance 71.9 mL/min (>60); Globulin 2.5 gm/dL (2.3-3.5); Glucose 89 mg/dL (74-106); Magnesium 1.5 mg/dL (1.6-2.6); Osmolality,Calculated 277 (275-295); Phosphorous 3.2 mg/dL (2.4-5.1); Potassium 3.2 mMol/L (3.4-5.1); Sodium 140 mMol/L (136-145); Total Protein 6.3 gm/dL (5.7-8.2); eGFR > 60 See Note
[2024-06-24 08:00] VITALS: BP 138/99; PULSE 94; RESP 16; TEMP 36.1; O2SAT 97
[2024-06-24] MEDS: ONDANSETRON INJ 2 MG/ML INJ 2 ML 4 MG IV (08:13)
--- NOTE | 2024-06-24 08:53 | PC.SS ---
Follow up note: On Iv antibiotic. Pain management. On IV pian meds. Pt will return home upon dc and dtr will provide transportation.
[2024-06-24] MEDS: POTASSIUM CHLORIDE 20 mEq TABCR 40 MEQ PO ×2 (09:12→10:23)
[2024-06-24] MEDS: Magnesium Sulfate 2 GM Ivpb 2 GM/50 ML BAG IV (09:13)
[2024-06-24] MEDS: HYDROcodone/APAP 5/325 TABLET 1 TAB PO (09:13)
[2024-06-24] MEDS: TRIMETHOPRIM/SULFA 160/800 DS TABLET 1 TAB PO (09:13)
--- NOTE | 2024-06-24 10:35 | CHAP ---
Patient was visited by the Spiritual Care Volunteer who prayed for them. (Volunteer was in the hospital from 09:00-10:35).
[2024-06-24 11:36] VITALS: BP 156/94; PULSE 98; RESP 17; TEMP 36.4; O2SAT 96
--- NOTE | 2024-06-24 12:37 | PC.NURSE ---
CALLED DR. KILGORE IN REGARD TO PT'S DISCHARGE AND DISCHARGE MEDICATION. DR. KILGORE WILL INFORM RESIDENT AFTER THEIR MEETING.
--- NOTE | 2024-06-24 13:23 | PD.RESDS ---
Planned Discharge Date 06/24/24 DS: Providers Provider Date of admission: 06/23/24 20:07 Primary care physician: RAPHAEL Bernabe Admitting Provider: Song Amaya MD Attending Provider on Admission: Song Amaya MD Consults: 06/22/24 06:26 Consult to Adult Hospitalist Stat Comment: Consulting Provider: Nikita Funes 06/22/24 16:20 Referral Physical Therapy Routine Comment: Physician Instructions: Instructions: s/p removal of nephrostomy tubes. Having severe pain still on left side. Attending Provider on DC: Steven Rodriguez MD Discharging Provider: Steven Rodriguez MD DS: Diagnosis Problem List Completed Was Problem List Reviewed/Reconciled?: Yes Hospital Course Hospital Course Hospital course: Reason for hospitalization: pain s/p removal nephrostomy tube, UTI This patient is a 49-year-old female with past medical history of endometriosis, stress urinary incontinence, hypertension was admitted for extracorporeal shockwave lithotripsy for the left ureteral stones. She had nephrostomy tube placed since January 2024 from [facility] due to stones in her left kidney and left ureter causing obstruction. Procedure was performed on 06/21/[address] Amaya. Extracorporeal shockwave lithotripsy was performed for left lower pole renal calculi and left nephrostogram was performed at the end of the procedure and percutaneous nephrostomy tube were removed. Patient tolerated the procedure well. Reason for consultation: Rapid response was called for the patient around 6:25 AM. Patient is under care of urology who had a nephrostomy tube and ureteral stent removed yesterday. Rapid response was called due to acute debilitating pain ranked as 10 out of 10 and described as sharp and stabbing that worsened with inspiration, cough, and associated with some nausea like symptoms. Patient had received [place] at 3 AM and was doing fairly well but around 530 began to experience pain on her left side in the region of the nephrostomy site that was radiating to the anterior beneath the ribs. She was noted to be tachycardic and slightly hypertensive which rapidly improved to normotensive. Patient states that the pain is worse than when she had the ureteral stone. Initially plan to order KUB but later changed to CT of the abdomen along with a chest x-ray. No guarding, rebound tenderness, or rigidity noted on examination of bilateral equal breath sounds. Patient was reluctant to allow us to assess the left flank because of the tenderness. Gave the patient 1 mg of morphine which reduced her pain from 10 out of 10 to 7 out of 10 and she was able to converse more comfortably. She is did state that she was having a pokey sensation around her body after the morphine but has received morphine in the past and is not opioid na?ve. Pain improved slowly and she worked with PT. Ucx grew Klebsiella resistant to ciprofloxacin CT abdomen pelvis showed multiple bilateral renal calculi and moderate left-sided hydronephrosis. No concern for obstruction requiring invasive management. Patient is now in stable condition and ready for discharge. Recommendations were given as below. Discharge Recommendations: Resume previous meds. Continue taking ciprofloxacin and Bactrim as prescribed. Take Zofran as needed for nausea. Follow up with urologist in 1 week. Call to make an appt. Hospital Diagnoses: #Left flank and upper quadrant Pain #Post ECSW lithotripsy and Removal of Left nephrotosmy tube due to ureteral stones #Klebsiella UTI #Leukocytosis #Lactic acidosis #Electrolyte abnormalities #Mild ALFRED likely prerenal-resolved #Hx of Hypertension #Hx of Endometriosis The patient's management plan was discussed with my attending physician Dr. Rodriguez. Sushma Corrales MD, PGY-1 Time Spent with Patient Time attestation: Total time spent providing and/or coordinating discharge services: Time spent: Greater than 30 minutes Quality: VTE Deep Vein Thrombosis/Pulmonary Embolism Present on Admission: No Exam Vital Signs Temp Pulse Resp BP Pulse Ox O2 Del Method O2 Flow Rate 97.6 F 98 17 156/94 H 96 Room Air 5 06/24/24 11:36 06/24/24 11:36 06/24/24 11:36 06/24/24 11:36 06/24/24 11:36 06/24/24 08:00 06/21/24 11:50 Narrative Exam GENERAL APPEARANCE: AxOx4, generally well-appearing female in pain.sat well on RA HEENT: NC, AT. Dry mucus membrane. EOMI, clear conjunctiva, oropharynx clear. NECK: Supple without lymphadenopathy. No stiffness or restricted ROM. HEART: sinus tacy with regular rhythm, normal S1/S2, no m/r/g LUNGS: CTAB, moving air well. No crackles or wheezes are heard. ABDOMEN/BACK: Soft, mild CVA tenderness, tube insertion site was examined. No signs of infection, no active draining. EXTREMITIES: Without cyanosis, clubbing or edema. NEUROLOGICAL: Grossly nonfocal. Alert and oriented, moving all 4 extremities. CN not formally tested but appear grossly intact. Skin: Warm and dry without any rash. Psych: Anxious with pain Discharge Plan Plan Patient Disposition: HOME (Self Care) Patient condition on transfer: Stable Care Plan Goals: Resume previous meds. Continue taking ciprofloxacin and Bactrim as prescribed. Take Zofran as needed for nausea. Follow up with urologist in 1 week. Call to make an appt. Prescriptions/Referrals Prescriptions/Med Rec: New hydrocodone-acetaminophen 5-325 mg tablet 1 tab PO Q6H MDD 4 PRN (Reason: pain) Qty: 30 0RF ciprofloxacin HCl [Cipro] 500 mg tablet 500 mg PO BID Qty: 14 0RF sulfamethoxazole-trimethoprim [Bactrim DS] 800-160 mg tablet 1 tab PO BID 10 Days Qty: 20 0RF Continued Amy-Bid 1 billion cell- 250 mg tablet 1 tab PO DAILY tamsulosin 0.4 mg capsule 0.4 mg PO DAILY Patient Comments: TAKE ONE CAPSULE BY MOUTH EVERY DAY 30 MINUTES following same meal each DAY Changed ondansetron 4 mg tablet,disintegrating 4 mg PO Q8H PRN (Reason: nausea) 5 Days Qty: 18 0RF Patient Comments: DISSOLVE ONE TABLET UNDER THE TONGUE THREE TIMES DAILY No Action hydrocodone-acetaminophen 5-325 mg tablet 1 tab PO Q6H PRN (Reason: pain) Referrals: Song Amaya MD [Physician] - Rozina Diaz FNP [Primary Care Provider] - Patient/Caregiver Discharge Instructions Other Discharge Activity Instructions:: Resume previous meds. Continue taking ciprofloxacin and Bactrim as prescribed. Take Zofran as needed for nausea. Follow up with urologist in 1 week. Education Materials: Shock Wave Lithotripsy Print Language: Montene[place]in Stand Alone Forms: Anay Award Info., Patient Portal Info Letter Discharge Order Discharge Orders: Discharge (Routine); Ordered 06/22/24 Ordered By: Song Amaya Quality Discharge Quality Measures VTE prophylaxis Attestestation Attestation I discussed with and supervised the resident physician who took care of this patient. I agree with the assessment and discharge plan as above. Follow-up with urologist in the outpatient clinic.
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
== END 2024-06-24 14:45 | disposition home or self-care (01) | DRG 463 ==
LOC: S3NX 06-24 07:21
PROVIDERS: Student in an Organized Health Care Education/Training Program; Admitting Provider Surgery; Referring Provider Surgery; Visit Provider Surgery
PROC: 0TF4XZZ Fragmentation in Left Kidney Pelvis, External Approach (ICD-10-PCS; CPT 50590; principal; 2024-06-21 10:15)
DX: N13.6 Pyonephrosis (principal); B96.1 Klebsiella pneumoniae [K. pneumoniae] as the cause of diseases classified elsewhere; E87.20 Acidosis, unspecified; E87.6 Hypokalemia; I10 Essential (primary) hypertension; Z43.6 Encounter for attention to other artificial openings of urinary tract; N17.9 Acute kidney failure, unspecified; Z16.23 Resistance to quinolones and fluoroquinolones; Z87.442 Personal history of urinary calculi
CPT/HCPCS: 36415; 71045; 74018; 74176; 80048; 80053; 81001; 83605; 83735; 84100; 84484; 84703; 85025; 87040; 87077; 87086; 87186; 93005; G0378; J0131; J0694; J0713; J1885; J2250; J2270; J2405; J2470; J2550; J2704; J3010; J3475; J3490; J7030; J7120; J7121; A9270; J1920